=== PATIENT | female | born 1970 | race Caucasian/White ===

== ENCOUNTER 2024-12-02 20:53 | Emergency (ER) | payer SELFPAY ==
--- NOTE | ~2024-12-02 | XR_ITS ---
CHEST RADIOGRAPH, PA AND LATERAL CLINICAL HISTORY: medical clearance . COMPARISON: None available TECHNIQUE: PA and lateral views of the chest. FINDINGS The cardiomediastinal silhouette is unremarkable. The lungs are clear. IMPRESSION: No focal infiltrate or effusion. Reviewed, dictated and finalized at location A.
--- NOTE | ~2024-12-02 | CT_ITS ---
History: Altered mental status PROCEDURE: CT head without contrast. COMPARISON: None TECHNIQUE: Axial imaging of the head performed from the skull base to the vertex without IV contrast. Sagittal a nd coronal reformations obtained. DLP: 605 mGy-cm FINDINGS: The ventricles are normal in size, shape and position. There is no mass, mass effect or midline shift. There is no abnormal extra-axial fluid collection or intracranial hemorrhage. Visualized paranasal sinuses are clear. The mastoid air cells are well aerated. No acute displaced fractures within the overlying cranium. Impression: No acute intracranial hemorrhage or suspicious mass effect. Reviewed, dictated and finalized at location A. Impression: No acute intracranial hemorrhage or suspicious mass effect.
[2024-12-02 21:03] VITALS: BP 140/100; PULSE 110; RESP 22; TEMP 36.3; O2SAT 98
--- NOTE | 2024-12-02 21:15 | ECG_ITS ---
Test Date: 2024-12-02 23:24:28 Measurements Intervals [place] Rate: 94 P: 11 [place]: 155 QRS: -4 QRSD: 86 T: 39 QT: 355 QTc: 446 Interpretive Statements SINUS RHYTHM WITH FREQUENT VENTRICULAR PREMATURE COMPLEXES DELAYED PRECORDIAL R/S TRANSITION CONSIDER INFERIOR INFARCT, AGE INDETERMINATE BASELINE ARTIFACT- I, II, III, AVR, AVL, AVF, V1, V3, V5-V6 ABNORMAL ECG No previous ECG available for comparison Electronically Signed On 12-03-2024 07:18:51 CDT by Chon Mercado D.O.
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
[2024-12-02 22:44] LABS: BEDSIDEPREGUCG Negative (Negative)
[2024-12-02 22:45] LABS: Basophils Absolute Auto 0.1 K/mm3 (0.0-0.1); Basophils Percent Auto 0.8 % (0.2-1.2); Hematocrit 40.6 % (37.0-47.0); Immature Granulocyte Absolute 0.03 K/mm3 (0.00-0.031); Immature Granulocyte Percent A 0.4 % (0-0.5); Immature Platelet Fraction Pct 1.9 % (0.9-11.2); Lymphocytes Absolute Auto 2.08 K/mm3 (0.9-3.2); Lymphocytes Percent Auto 27.2 % (18.3-44.2); Mean Corpuscular Hemoglobin 28.9 pg (26-34); Mean Corpuscular Volume 90.2 fl (80-100); Mean Platelet Volume 9.1 fl (7.4-10.4); Monocytes Absolute Auto 0.9 K/mm3 (0.1-0.6); Monocytes Percent Auto 11.5 % (2.6-8.5); Neutrophils Absolute Auto 4.6 K/mm3 (1.3-6.7); Neutrophils Percent Auto 60.1 % (45.5-73.1); Platelet Count Result 506 k/mm3 (150-375); Red Cell Distribution Width 15.5 % (11.5-14.5); White Blood Count 7.6 K/mm3 (4.5-10.0)
[2024-12-02 22:50] LABS: Add Urine Microscopic? YES; Appearance Urine Clear (Clear); Bacteria Urine None Seen /hpf; Bilirubin Urine Negative (Negative); Blood Urine Negative (Negative); Color Urine Yellow (Yellow); Glucose Urine UA Negative (Negative); Ketones Urine 1+ mg/dL (Negative); Leukocyte Esterase Ur 2+ LEU/UL (Negative); Nitrate Urine Negative (Negative); Protein Urine Negative (Negative); RBC Urine 0-2 /hpf (0-2); Specific Grav Ur 1.007 (1.001-1.035); Squamous Epithelial Cell Urine Occasional /hpf (Few); Urobilinogen Urine 0.2 mg/dL (<2.0); WBC Urine 21-50 /hpf (0-3); pH Urine 5.5 (5.0-9.0)
[2024-12-02 22:55] LABS: Acetaminophen < 10 ug/mL (10-30); Alanine Aminotransferase 36 U/L (6-35); Albumin Level 4.9 g/dL (3.5-5.1); Alkaline Phosphatase 100 U/L (38-126); Anion Gap 16 mmol/L (4-12); Aspartate Amino Transferase 41 U/L (14-36); Bilirubin,Total 0.6 mg/dL (0.2-1.3); Blood Urea Nitrogen 10 mg/dL (7-17); Calcium 10.2 mg/dL (8.4-10.2); Carbon Dioxide 22 mmol/L (22-30); Chloride 102 mmol/L (98-107); Estimated Glomerular Filt Rate > 60; Ethanol < 10 mg/dL (<10); Glucose 284 mg/dL (65-110); Potassium 3.6 mmol/L (3.4-5.0); Salicylate < 1.0 mg/dL (2-20); Sodium 140 mmol/L (137-145); Total Protein 8.9 g/dL (6.3-8.2)
[2024-12-02 23:01] LABS: Amphetamine Screen Urine Negative (Negative); Barbiturate Screen Urine Negative (Negative); Benzodiazepines Screen Urine Negative (Negative); Cannabinoid Screen Urine Negative (Negative); Cocaine Screen Urine Negative (Negative); Opiate Screen Urine Negative (Negative); Phencyclidine Screen Urine Negative (Negative)
[2024-12-02 23:08] LABS: Methadone Screen Urine Negative (Negative)
[2024-12-02 23:20] LABS: SARS-CoV-2 RNA PCR Negative (Negative)
--- NOTE | 2024-12-03 00:37 | PC.NURSE ---
call placed to [facility] [employer] in an attempt to notify patients family about patients whereabouts. They will look into it
--- NOTE | 2024-12-03 01:59 | PC.NURSE ---
crisis filled out involutary paperwork. Verbalized that no where had beds available as they have apet even if it is an emotional support animal
--- NOTE | 2024-12-03 03:46 | PC.NURSE ---
pt given warm blanket and pillow for dog.
--- NOTE | 2024-12-03 06:34 | PC.NURSE ---
Spoke with Kimberley @ [facility]. Faxed a copy of insurance cards and ekg. Fax number
--- NOTE | 2024-12-03 06:48 | PC.NURSE ---
pt spilled soda. Pt believes bed call with water for dog has been poisoned. Pt given new bed call and new bottle of unopened water.
[2024-12-03] MEDS: IBUPROFEN 400 MG TABLET 800 MG PO (07:53)
[2024-12-03 07:54] VITALS: BP 137/96; PULSE 88; RESP 18; O2SAT 97
--- NOTE | 2024-12-03 08:03 | PC.NURSE ---
Pt given new clothes, and toiletries. Pt also requesting food, but it must be prepackaged.
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
[2024-12-03] MEDS: OLANZapine 10 MG INJ VIAL IM (10:50)
[2024-12-03] MEDS: WATER, STERILE FOR INJECTION 10 ML VIAL XX (10:50)
--- NOTE | 2024-12-03 15:36 | PCCCNOTE ---
Called to the ED regarding the pt. needing to be placed in a psychiatric hospital and has an emotional support dog that can not go with her. Pt.'s emergency contact is Kale Bonner, she is the social services manager at [facility]. Her phone number is [phone]. I contacted her for information on the next kin for the pt. She said the pt. usually is seen at [facility] ([facility] [place] [address], . FAX: [phone]. Attention to Charlene Conde. She also said the pt.'s parents are Destinee and Mio Bhakta and they live in [place]. She did not have a phone # for them, but said that she has been estranged from them. Arrangements were made by the dispatch manager of ED to have the dog boarded. [facility] picked the dog up and will transport it to [place] animal control until Thursday. It will then be at [facility] until the pt. is able to pick it up.
[2024-12-03 17:03] VITALS: BP 136/87; PULSE 86; RESP 18; O2SAT 99
--- NOTE | 2024-12-03 17:33 | PC.NURSE ---
Pt becoming more upset. VORB for 1mg PO ativan per Dr. Courtney
[2024-12-03] MEDS: LORazepam (*CRX) 1 MG TABLET (17:34)
== END 2024-12-03 18:03 ==
PROVIDERS: Emergency Provider Emergency Medicine
DX: F23 Brief psychotic disorder (principal); Z11.52 Encounter for screening for COVID-19; I49.3 Ventricular premature depolarization; R94.31 Abnormal electrocardiogram [ECG] [EKG]
CPT/HCPCS: 36415; 70450; 71046; 80053; 80143; 80179; 80307; 81001; 81025; 82077; 84443; 85025; 85055; 87086; 87635; 93005; 99285; A9270; J2359